=== PATIENT | female | born 1945 | race Caucasian/White ===

== ENCOUNTER → 2017-06-23 | Outpatient (CLI) | payer MEDICARE, OTHER ==
[~2017-06-23] MED LIST: AMARYL2 MG PO; ASCRIPTIN325 MG; ASPIRIN325 MG PO; ASPIRIN81 M1 PO; CALCIUM; COREG3.125 MG; COREG3.125 MG PO; COUMADIN6 M2 PO; COZAAR; COZAAR50 M1 PO; COZAAR50 MG PO; DELTASONE5 MG PO; DOXYCYCLINE100 M2 PO; DUONEB 3 MG/3 ML3 M1 NEB; FLONASE 0.05% 121 EA NAS; GLIMEPERIDE; IMDUR60 MG; KCL; KCL PO; LASIX; LASIX20 MG PO; LIPITOR80 MG; LIPITOR80 MG PO; MELOXICAM15 MG PO; METFORMIN500 MG; METFORMIN500 MG PO; MICRO-K8 MEQ PO; MUCINEX600 MG PO; NEBULIZER DEVI; NORCO 325 MG-51 TAB PO; PLAVIX75 MG; PLAVIX75 MG PO; PRILOSEC OTC20 MG PO; PRILOSEC20 MG; PULMICORT RESP0.5 MG NEB; VITAMIN D1000 IU PO
== END | disposition home or self-care (01) ==
LOC: RAD 06-15 13:30 → MAMMO 06-15 14:20 → RAD 12:55
DX: Z12.31 Encounter for screening mammogram for malignant neoplasm of breast (principal); Z13.820 Encounter for screening for osteoporosis; N95.9 Unspecified menopausal and perimenopausal disorder

== ENCOUNTER → 2018-09-27 | Outpatient (CLI) | payer MEDICARE, OTHER | END | disposition home or self-care (01) | LOC: LAB 09:46 → MAMMO 10:00 | DX: Z12.31 Encounter for screening mammogram for malignant neoplasm of breast (principal); E11.49 Type 2 diabetes mellitus with other diabetic neurological complication ==

== ENCOUNTER → 2021-04-08 | Outpatient (CLI) | payer MEDICARE, OTHER | END | disposition home or self-care (01) | LOC: RAD 08:22 → MAMMO 09:30 | PROVIDERS: ATTEND Internal Medicine | DX: Z12.31 Encounter for screening mammogram for malignant neoplasm of breast (principal); N64.89 Other specified disorders of breast; M85.852 Other specified disorders of bone density and structure, left thigh; Z78.0 Asymptomatic menopausal state ==